=== PATIENT | male | born 1990 | race Caucasian/White ===

== ENCOUNTER 2016-12-28 11:07 | Emergency (ER) | payer OTHER | END 2016-12-28 12:23 | disposition home or self-care (01) | LOC: FER 11:07 | DX: S60.454A Superficial foreign body of right ring finger, initial encounter (principal); Z88.0 Allergy status to penicillin; Z23 Encounter for immunization; W45.8XXA Other foreign body or object entering through skin, initial encounter; W25.XXXA Contact with sharp glass, initial encounter; Y92.009 Unspecified place in unspecified non-institutional (private) residence as the place of occurrence of the external cause | CPT/HCPCS: 90471; 90715 ==